=== PATIENT | female | born 1970 | race Caucasian/White ===

== ENCOUNTER → 2016-06-07 | Outpatient (CLI) | payer BC | LOC: RAD 16:00 | PROVIDERS: ATTEND Family Medicine | DX: S10.93XA Contusion of unspecified part of neck, initial encounter (principal); X58.XXXA Exposure to other specified factors, initial encounter | CPT/HCPCS: 76536 ==

== ENCOUNTER → 2016-06-08 | Outpatient (CLI) | payer BC | LOC: RAD 11:54 | PROVIDERS: ATTEND Family Medicine | DX: S10.93XA Contusion of unspecified part of neck, initial encounter (principal); X58.XXXA Exposure to other specified factors, initial encounter | CPT/HCPCS: 72157; A9579 ==

== ENCOUNTER → 2016-07-03 | Outpatient (CLI) | payer BC | LOC: RAD 11:03 | PROVIDERS: ATTEND Otolaryngology Plastic Surgery within the Head & Neck | DX: R22.1 Localized swelling, mass and lump, neck (principal) | CPT/HCPCS: 70491; 71260; Q9967 ==